=== PATIENT | female | born 1960 | race Caucasian/White ===

== ENCOUNTER 2024-07-16 20:08 | Emergency (ER) | payer MEDICARE, OTHER, SELFPAY ==
[2024-07-16 20:16] VITALS: BP 174/96
[2024-07-16 20:32] LABS: % Basophils 0.3 % (0-2); % Immature Granulocytes 0.3 % (0-0.5); % Lymphocytes 15.5 % (20.5-51.1); % Monocytes 2.6 % (1.7-9.3); % Neutrophils 81.3 % (42.2-75.2); Absolute Monocytes 0.2 10^3/uL (0.1-0.6); Absolute Neutrophils 5.2 10^3/uL (1.4-6.5); Hematocrit 46.2 % (37.0-47.0); Mean Corp Hgb Conc. 34.6 g/dL (33.0-37.0); Mean Corpuscular Hgb 28.6 pg (27.0-31.0); Mean Corpuscular Volume 82.5 fL (81.0-99.0); Mean Platelet Volume 9.4 fL (7.4-10.4); Nucleated Red Blood Cells % 0 %; Platelet Count 308 10^3/uL (130-400); Red Cell Dist. Width 12.9 % (11.5-14.5); White Blood Cell Count 6.4 10^3/uL (4.8-10.8)
[2024-07-16 20:55] LABS: ALT (SGPT) 23 U/L (0-35); AST (SGOT) 24 U/L (14-36); Albumin 5.3 g/dl (3.5-5.0); Alkaline Phosphatase 77 U/L (38-126); Blood Urea Nitrogen 13 mg/dl (7-17); Calcium 10.6 mg/dl (8.4-10.2); Carbon Dioxide 15 mmol/L (22-30); Chloride 103 mmol/L (98-107); Glucose 158 mg/dl (70-99); Potassium 4.5 mmol/L (3.5-5.1); Sodium 142 mmol/L (135-145); Total Bilirubin 1.2 mg/dl (0.2-1.3); Total Protein 8.2 g/dl (6.3-8.2); eGFR > 60.00
[2024-07-16 21:07] LABS: Troponin I < 0.012 ng/ml
[2024-07-16 22:35] VITALS: BP 132/87
--- NOTE | 2024-07-16 23:48 | ED.GENMED ---
History of Present Illness
General
Chief Complaint: Abdominal Symptoms
Source: patient and spouse
Time Seen by Provider: 07/16/24 23:33
History of Present Illness
History of Present Illness:
64yoF with no significant past medical history presenting with her for evaluation of dizziness and vomiting. Symptoms initially started 3 days ago with decreased hearing out of the left ear and dizziness. She describes the dizziness as
feeling like the room is spinning. Symptoms are worse with head movement. She reports associated nausea and vomiting. Patient is having difficulty ambulating due to her symptoms. She was seen at [facility] ED at symptom onset. No testing was
done other than an EKG. She was diagnosed with eustachian tube dysfunction and given prescriptions for nasal sprays, meclizine, and Zofran. Patient followed up with ENT yesterday. She states she had a hearing test which was abnormal and she was
prescribed prednisone. She took the first dose this afternoon. Patient has been vomiting throughout the day today and has not been able to tolerate p.o. intake which prompted her to come back to the ED.
Phy Exam
General Physical Exam
General Presentation: well appearing and no apparent distress
General age: appears stated age
General Skin: warm and dry
General Habitus: normal
General Mental: alert
ENT Exam
ENT Exam: TM's normal, pharynx normal and normocephalic
Eye Exam
Eye Exam: PERRL, conjunctiva normal and other (Fatigable horizontal nystagmus )
Cardiovascular Exam
Cardiovascular Exam: regular rate/rhythm
Pulmonary Exam
Pulmonary Exam: lungs clear, no respiratory distress, no crackles and no wheezing
Neurological Exam
Neurological Exam: alert, CN II-XII intact and other (Normal finger to nose and heel to cooley bilaterally. +Gait ataxia noted.)
Solomon Coma Scale
Eye Opening: Spontaneous
Verbal Response: Oriented
Motor Response: Obeys Commands
GCS Total Score: 15
Skin Exam
Skin Exam: normal color and warm/dry
Psychiatric Exam
Psychiatric Exam: normal mood/affect
Course
Orders/Labs/Results
Orders:
Orders
07/16/24 20:21
Electrocardiogram (*1) Urgent
Reason for Study: Fatigue / Weakness
07/16/24 20:22
EKG- Treatment ONCE
07/16/24 20:24
Complete Blood Count/With Diff Urgent
Comprehensive Metabolic Panel Urgent
Troponin I Urgent
07/16/24 23:47
0.9% Sodium Chloride 1000 ml [Nss] 1,000 ml IV BOLUS
Ondansetron Injectable [Zofran] 4 mg IV NOW STA
diazePAM [Valium Injection] 2 mg IV NOW STA
07/17/24 00:04
CT Head W/o Iv Contrast Urgent
Reason For Exam: Dizziness
07/17/24 02:16
Dexamethasone Sod Phosphate [Decadron] 10 mg IV NOW STA
Abnormal Lab Results
07/16/24
20:24
RBC 5.60 H 10^6/uL
(4.20-5.40)
Absolute Lymphs (auto) 1.0 L 10^3/uL
(1.2-3.4)
Neutrophils % 81.3 H %
(42.2-75.2)
Lymphocytes % 15.5 L %
(20.5-51.1)
Carbon Dioxide 15 L mmol/L
(22-30)
Glucose 158 H mg/dl
(70-99)
Calcium 10.6 H mg/dl
(8.4-10.2)
Albumin 5.3 H g/dl
(3.5-5.0)
07/16/24 20:24
07/16/24 20:24
Vital Signs
Initial and Last Documented VS:
Initial Vital Signs
Temp Pulse Resp BP Pulse Ox
97.9 F 91 16 174/96 99
07/16/24 20:16 07/16/24 20:16 07/16/24 20:16 07/16/24 20:16 07/16/24 20:16
Last Documented Vital Signs
Temp Pulse Resp BP Pulse Ox
97.9 F 82 16 132/87 98
07/16/24 20:16 07/16/24 22:35 07/16/24 20:16 07/16/24 22:35 07/16/24 22:35
MDM/Problems Addressed
Differential Diagnosis Includes:
64yoF here with dizziness x 3 days. Feels like room is spinning, worse with head movement. Associated with decreased hearing from L ear and n/v. Has already seen ENT for this and started on prednisone. First dose today but vomited shortly
afterwards. VSS. She is awake, alert, with a GCS of 15. Horizontal nystagmus noted on exam. No ataxia with finger to nose or heel to cooley but she does have gait imbalance. Differential diagnosis includes but is not limited to: Meniere's, vestibular
neuronitis, labyrinthitis, BPPV, less likely CVA
Initial ED plan: Basic labs and EKG obtained in triage. Bicarb 15, likely related to vomiting. Electrolytes and renal function normal. EKG shows NSR with nonspecific ST changes. Troponin WNL and patient has no cardiac symptoms. Will obtain CT head.
IV Valium, Zofran, and fluid bolus for symptoms.
*EKG
Interpreted by ED Provider?: Yes
EKG Intrepretation Date: 07/16/24
Heart Rate: 71
Rate: normal
Rhythm: sinus
[place]: normal axis
Interval: normal interval
QRS Pattern: normal QRS
Ischemia: non-specific ST changes
*Critical Care Note
Total Time (30-74mins, 75-104mins- exclusive of procedures): Not Applicable
Update Note
Update Note:
CT head is negative for acute findings. Patient feeling significantly improved on reassessment and is tolerating PO intake. Presentation consistent with peripheral vertigo. Very low suspicion for central vertigo and she has already seen ENT who
prescribed her prednisone 60mg with a slow taper. Patient is stable for discharge. Will give dose of IV Decadron here as she vomited up her dose of prednisone earlier today. She was given a prescription for Zofran earlier in the week but she never
picked this up. Prescription for Zofran was sent to her pharmacy. She has an f/u appt with ENT scheduled for next week. ED return precautions discussed. Patient and expressed understanding and are agreeable to plan. She was discharged in
stable condition.
ED Attending Note
-
Portions of this chart may have been created with voice recognition software.� Occasional wrong word or��sound alike� substitutions may have occurred due to the inherent limitations of voice recognition software.
Discharge Plan
Departure
Patient Disposition: Home (Routine Discharge)
Date of Disposition: 07/17/24
Time of Disposition: 02:16
Patient with high blood pressure during this ER visit?: Yes
Discharge Problem:
Vertigo
Instructions: Vertigo ED
Prescriptions:
New
ondansetron 4 mg tablet,disintegrating
4 mg PO Q6H PRN (Reason: nausea and vomiting) Qty: 20 0RF
Referrals:
Viky Raphael MD [Family Provider] -
Activity Restrictions/Additional Instructions:
Take Zofran as needed for nausea. Continue taking meclizine as needed.
Please follow-up with your family doctor and ENT.
Return to the ER with any new or worsening symptoms.
Interventions
Interventions:
*Risk Screen - Suicide Last Done: 07/17/24 00:43
*General Assessment Last Done: 07/17/24 00:43
*Neglect/Abuse Screening Last Done: 07/17/24 00:43
ED- Fall Risk Assessment Last Done: 07/17/24 00:43
*ED COVID-19 Vaccine History Last Done: 07/17/24 00:43
*Nursing Disposition Last Done: 07/17/24 03:03
LQ-Fkacmj-Jhsbwisozd Assessment Last Done: 07/17/24 00:43
Discharge Date and Time
Discharge Date/Time: 07/17/24 03:04
Print Language: GEORGIAN
[2024-07-17] MEDS: ZOFRAN 4 MG IV (00:37)
[2024-07-17] MEDS: NSS 1000 IV (00:37)
[2024-07-17] MEDS: VALIUM INJECTION 2 MG IV (00:37)
[2024-07-17 00:43] VITALS: BMI 28.2
[2024-07-17] MEDS: DECADRON 10 MG IV (02:37)
== END 2024-07-17 03:04 | disposition home or self-care (01) ==
LOC: EMR 20:08
PROVIDERS: Emergency Medicine; EMERGENCY PHYSICIAN Student in an Organized Health Care Education/Training Program; FAMILY PHYSICIAN Family Medicine
DX: R42 Dizziness and giddiness (principal); R11.2 Nausea with vomiting, unspecified; R26.2 Difficulty in walking, not elsewhere classified; H69.90 Unspecified Eustachian tube disorder, unspecified ear; R53.83 Other fatigue; R53.1 Weakness; R03.0 Elevated blood-pressure reading, without diagnosis of hypertension
CPT/HCPCS: 99284; 96374; 96375 ×2; 96361; 70450; 80053; 84484; 85025; 93005